=== PATIENT | female | born 1985 | race Hispanic/Latino ===

== ENCOUNTER 2019-05-31 15:09 | Inpatient (IN) | payer MEDICAID, SELFPAY ==
[~2019-05-31 15:09] MED LIST: Bupivacaine 0.25% HCL 30 ML VIAL ONE; Bupivacaine/Epinephrine 0.5% 10 ML VIAL ONE; Lidocaine 2% MPF 10 ML AMP (For Epidural Use) ONE
[2019-05-31] MEDS ORDERED: Ondansetron PF 4 MG/2 ML Vial IVP PRN (20:13)
[2019-05-31] MEDS ORDERED: Acetaminophen 500 MG TAB PO PRN (20:13)
[2019-05-31] MEDS ORDERED: Lidocaine 1% (PF) 30 ML VIAL SC PRN (20:13)
[2019-05-31] MEDS ORDERED: Promethazine HCl 25 MG/ML VIAL IM PRN (20:13)
[2019-05-31] MEDS ORDERED: Butorphanol Tartrate 1 MG/ML VIAL SLOW IVP PRN (20:13)
[2019-05-31] MEDS ORDERED: Ibuprofen 800 MG TAB PO PRN (20:13)
[2019-05-31] MEDS ORDERED: NS / Oxytocin 40 units/1000ml 1,000 ML IV PRN (20:13)
[2019-05-31] MEDS ORDERED: hydrALAZINE 20 MG/ML VIAL SLOW IVP PRN (20:13)
[2019-05-31] MEDS ORDERED: Penicillin G Potassium 5 MILL.UNITS in Sodium Chloride 0.9% 100 ML IVPB SCH (20:15)
[2019-05-31] MEDS: Lactated Ringer's 1,000 ML IV SCH (21:00)
[2019-05-31 21:07] LABS: Hemoglobin 13.3 g/dL (12.0-16.0); Mean Corpuscular HGB CONC 35.2 g/dL (32.0-36.0); Mean Corpuscular Hemoglobin 31.9 pg (27.0-31.0); Mean Corpuscular Volume 90.6 fL (78.0-98.0); Mean Platelet Volume 7.7 fL (7.4-10.4); Platelet Count 283 thou/uL (130-400); RBC Distribution Width 12.5 % (11.5-14.5); Red Blood Cell (RBC) Count 4.16 mill/uL (4.20-5.40)
[2019-05-31 21:15] VITALS: BMI 31.2
[2019-05-31] MEDS ORDERED: Misoprostol 100 MCG TAB ONE (21:30)
[2019-05-31] MEDS ORDERED: Misoprostol 100 MCG TAB VAG SCH (21:45)
--- NOTE | 2019-05-31 21:46 | PDOC.FPROB ---
FMR OB H&P: HPI - History of Present Illness Chief Complaint: Induction of Labor Indentification: 34 yo @41.3 by 37.3wk sono History of Present Illness: Pt presents as a post dates induction of labor. Pt was late to care. She moved from [facility] 2 months ago. She was dated at 37.3wks by sono at her initial visit. Pt was chlamydia positive and treated w/ PHONG pending. Pt is GBS positive. Denies any other gestational complications. No complaints at this time. No signs of SROM. No red flag sx. Primary Care Physician: Dr. Holt FMR OB H&P: Current - Care : 1 Para: 0 Gestational age: 41.3 Due date: 05/21/19 Dating Criteria: 37.3wk sono Course/Complications: Chlamydia treated w/ pending PHONG, GBS + - OB Labs Blood type: O RH: positive HIV: negative RPR: negative HepBsAg: negative Rubella: non-immune Gonorrhea: negative Chlamydia: positive (treated and pending PHONG) Pap Smear: Normal 1 hour gtt: 2hr - 97 GBS: positive H&H: 12.6/35.7 Platelets: 316 FMR OB H&P: History - Past Medical History PMH: None - OB History OB History: - [employer] History [employer] History: None - Surgical History Sx History: None - Social History Social History: Denies tobacco, alc, drugs - Family History Family History: Non contributory FMR OB H&P: Medications - Current Home Medications: Medication Instructions Recorded Confirmed Type Pnv No.95/Ferrous Fum/Folic AC 1 tab PO DAILY 05/31/19 05/31/19 History [ Vitamin Tablet] Allergies/Adverse Reactions: Allergies Allergy/AdvReac Type Severity Reaction Status Date / Time No Known Allergies Allergy Verified 05/31/19 21:17 FMR OB H&P: ROS - Review of Systems General: denies: fever/chills Eyes: denies: vision changes, double vision ENT: denies: nasal congestion, sinus pain/pressure Cardiovascular: denies: chest pain, edema Respiratory: denies: cough, shortness of breath Gastrointestinal: denies: abdominal pain, nausea, vomiting, diarrhea Genitourinary (Female): denies: dysuria, vaginal discharge, vaginal pain, vaginal bleeding, contractions Musculoskeletal: denies: pain, swelling Neurologic: denies: seizures, weakness, headache Integumentary: denies: rash, lesions FMR OB H&P: Vital Signs - Maternal Vital signs: BP: 121/73, HR: 93, Resp: 18, Temp: 97.8 - Heart Tones Baseline: 150 Variability: moderate Acceleration: present Deceleration: absent Category: category 1 [place] contractions every: 10 FMR OB H&P: Physical Exam - Physical Exam General: NAD HEENT: normocephalic and atraumatic, EOMI, MMM Neck: FROM, no JVD Heart: RRR, normal S1/S2, no murmurs/rubs/gallops, pulses present, no edema General: CTAB, no respiratory distress, good air movement, no rales/rhonchi Abdomen: soft, gravid, bowel sound present Musculoskeletal: pulses present, FROM in all four extremities Neurological: sensation to pain,touch and proprioception grossly normal Skin: no rash, capillary refill <2 seconds Lymphatic: no unusual bruising or bleeding, no purpura Psychiatric: intact recent and remote memory, good judgement and insight, normal mood and affect - Pelvic Exam Vulva: normal hair distribution, appropriate jose stage, no blood Deviation from normal: Thick clumping white discharge - likely yeast infection Cervix: no masses SVE: 1/50/-2 Mcmahon score: 7 Membranes: Intact Presentation: Vertex FMR OB H&P: Results - Labs Lab results: Laboratory Results - last 24 hr 05/31/19 05/31/19 20:53 20:53 WBC 12.0 H RBC 4.16 L Hgb 13.3 Hct 37.7 MCV 90.6 MCH 31.9 H MCHC 35.2 RDW 12.5 Plt Count 283 MPV 7.7 Blood Type O POSITIVE Antibody Screen NEGATIVE FMR OB H&P: A/P - Problem List (1) Post-dates Current Visit: Yes Status: Acute Code(s): O48.0 - POST-TERM (2) Late care Current Visit: Yes Status: Acute Code(s): O09.30 - SUPRVSN OF PREG W INSUFFICIENT ANTENAT CARE, UNSP TRIMESTER (3) Encounter for induction of labor Current Visit: Yes Status: Acute Code(s): Z34.90 - ENCNTR FOR SUPRVSN OF NORMAL , UNSP, UNSP TRIMESTER (4) Positive GBS test Current Visit: Yes Status: Acute Code(s): B95.1 - STREPTOCOCCUS, GROUP B, CAUSING DISEASES CLASSD ELSWHR (5) Chlamydia infection affecting in third trimester Current Visit: Yes Status: Acute Code(s): O98.813 - OTH MATERNAL INFEC/ PARASTC DISEASES COMP PREG, THIRD TRI; A74.9 - CHLAMYDIAL INFECTION, UNSPECIFIED Disposition: Induction of Labor for Post Dates - Late to Care @ 37wks - Current check 50/-2; Mcmahon 7 - Latest check this week: unable to locate cervix - Cytotec induction now, q4hr - Cat 1 strip w/ contractions on toco q10 min - Penicillin G started for GBS positive - Chlamydia PHONG pending, CPL contacted for results - Continuous EFM - cervical checks Dispo: Admit to L&D Discussion: Date/Time: 05/31/192141 This H&P was discussed with Dr. Zabala and Dr. Lima who agree with the above documentation and plan. Signature: Dutch Carvajal D.O. PGY1 Addendum - Attending - Attending Attestation Date/Time: 05/31/19 901 I personally evaluated the patient and discussed the management with Dr. Carvajal I agree with the History, Examination, Assessment and Plan documented above with any addition or exceptions noted below - 34 yo @41.3 weeks admitted for induction. Denies ctx, LOF, VB. (+) FM. Afebrile VSS. SVE 1/50%/-2/mid/med; Category 1 FHTs. A/P: 1) IUP@41.3 weeks for induction- cytotec placed; recheck in 4 hours. 2) GBS (+)- start PCN
[2019-05-31 21:52] LABS: Syphilis Antibody Nonreactive (Nonreactive); Syphilis Antibody Index 0.03 S/CO (<1.00 Non-Reactive)
[2019-05-31 23:26] LABS: HBSAg Index 0.14 S/CO (0-0.99); Hep B Surf Ag Non-Reactive S/CO (NonReactive)
[2019-06-01] MEDS: Misoprostol 100 MCG TAB VAG SCH ×3 (00:54→23:52)
[2019-06-01] MEDS: Penicillin G 2.5 MILL.units 2.5 MILL.UNITS in Premix Bag 1 BAG IVPB SCH ×5 (00:54→20:53)
--- NOTE | 2019-06-01 00:59 | PDOC.LDPN ---
Labor & Delivery Progress Note - Subjective Subjective: comfortable - Objective Vital signs reviewed and normal: yes General: NAD Uterine fundus: non tender SVE: /-1 @ [address] Carvajal and nurse Richa FHT: category 1 (Baseline 140, mod variability, +accels, no decels) [place] contractions every: q5-8 - Assessment (1) Post-dates Code(s): O48.0 - POST-TERM Current Visit: Yes Status: Acute Comment: Cervix slightly softer than last check. 2nd dose of cytotec placed. (2) Late care Code(s): O09.30 - SUPRVSN OF PREG W INSUFFICIENT ANTENAT CARE, UNSP TRIMESTER Current Visit: Yes Status: Acute (3) Encounter for induction of labor Code(s): Z34.90 - ENCNTR FOR SUPRVSN OF NORMAL , UNSP, UNSP TRIMESTER Current Visit: Yes Status: Acute (4) Positive GBS test Code(s): B95.1 - STREPTOCOCCUS, GROUP B, CAUSING DISEASES CLASSD ELSWHR Current Visit: Yes Status: Acute (5) Chlamydia infection affecting in third trimester Code(s): O98.813 - OTH MATERNAL INFEC/PARASTC DISEASES COMP PREG, THIRD TRI; A74.9 - CHLAMYDIAL INFECTION, UNSPECIFIED Current Visit: Yes Status: Acute Plan: continue plan of care
--- NOTE | 2019-06-01 05:04 | PDOC.LDPN ---
Labor & Delivery Progress Note - Subjective Subjective: comfortable, painful contractions (mildly) - Objective Vital signs reviewed and normal: yes General: NAD Uterine fundus: non tender SVE: /60/-2 FHT: category 1 [place] contractions every: 8 - Assessment (1) Post-dates Code(s): O48.0 - POST-TERM Current Visit: Yes Status: Acute Comment: Cervix slightly softer and thinner than last check. 3rd dose of cytotec placed. (2) Late care Code(s): O09.30 - SUPRVSN OF PREG W INSUFFICIENT ANTENAT CARE, UNSP TRIMESTER Current Visit: Yes Status: Acute (3) Encounter for induction of labor Code(s): Z34.90 - ENCNTR FOR SUPRVSN OF NORMAL , UNSP, UNSP TRIMESTER Current Visit: Yes Status: Acute (4) Positive GBS test Code(s): B95.1 - STREPTOCOCCUS, GROUP B, CAUSING DISEASES CLASSD ELSWHR Current Visit: Yes Status: Acute (5) Chlamydia infection affecting in third trimester Code(s): O98.813 - OTH MATERNAL INFEC/PARASTC DISEASES COMP PREG, THIRD TRI; A74.9 - CHLAMYDIAL INFECTION, UNSPECIFIED Current Visit: Yes Status: Acute Plan: continue plan of care
[2019-06-01] MEDS ORDERED: NS w/ Oxytocin 10 units 500 ML ONE (10:20)
[2019-06-01] MEDS: NS w/ Oxytocin 10 units 500 ML IV SCH (10:30)
[2019-06-01] MEDS: Lactated Ringer's 1,000 ML IV SCH ×3 (16:48→20:48)
--- NOTE | 2019-06-01 19:03 | PDOC.LDPN ---
Labor & Delivery Progress Note - Subjective Subjective: painful contractions - Objective Vital signs reviewed and normal: yes General: NAD, breathing through contractions Uterine fundus: non tender SVE: 18:30 Dilation: 1 Effacement: 90% Station: -3 FHT: category 1, variability present [place] contractions every: q1-2 min Other exam findings: SROM 17:10 - Assessment (1) Chlamydia infection affecting in third trimester Code(s): O98.813 - OTH MATERNAL INFEC/PARASTC DISEASES COMP PREG, THIRD TRI; A74.9 - CHLAMYDIAL INFECTION, UNSPECIFIED Current Visit: Yes Status: Acute (2) Encounter for induction of labor Code(s): Z34.90 - ENCNTR FOR SUPRVSN OF NORMAL , UNSP, UNSP TRIMESTER Current Visit: Yes Status: Acute (3) Late care Code(s): O09.30 - SUPRVSN OF PREG W INSUFFICIENT ANTENAT CARE, UNSP TRIMESTER Current Visit: Yes Status: Acute (4) Positive GBS test Code(s): B95.1 - STREPTOCOCCUS, GROUP B, CAUSING DISEASES CLASSD ELSWHR Current Visit: Yes Status: Acute (5) Post-dates Code(s): O48.0 - POST-TERM Current Visit: Yes Status: Acute Comment: Cervix slightly softer and thinner than last check. 3rd dose of cytotec placed. -: SROM 17:10. Balloon in place at that time. Balloon removed due to SROM at 18: 30. Recheck at that time /-3, midposition. Patient has been on 10 units of pitocin. Continue pitocin. Check again in 4 hours.
[2019-06-01] MEDS ORDERED: Fentanyl 4 mcg/Bup 0.1% Cadd 100 ML ONE (20:05)
[2019-06-01] MEDS ORDERED: Ondansetron PF 4 MG/2 ML Vial IVP PRN (21:15)
[2019-06-01] MEDS ORDERED: ePHEDrine/0.9% NaCl/PF SYRINGE 50 mg/10 ml SLOW IVP PRN (21:15)
[2019-06-01] MEDS ORDERED: Naloxone HCl 0.4 mg/ml Vial IVP PRN ×2 (21:15)
[2019-06-01] MEDS ORDERED: diphenhydrAMINE 50 MG/ML VIAL IVP PRN (21:15)
[2019-06-01] MEDS ORDERED: Promethazine HCl 25 MG/ML VIAL IM PRN (21:15)
[2019-06-01] MEDS ORDERED: Lactated Ringer's 500 ML IV PRN (21:15)
[2019-06-01] MEDS ORDERED: Acetaminophen 325 MG TAB PO PRN (21:15)
[2019-06-01] MEDS ORDERED: Communication Order-Pharmacy FS SCH (21:15)
--- NOTE | 2019-06-01 21:31 | PDOC.LDPN ---
Labor & Delivery Progress Note - Subjective Subjective: comfortable - Objective Vital signs reviewed and normal: yes General: NAD, resting Uterine fundus: non tender SVE: By Jonathon at 21:15 Dilation: 3 Effacement: 90% Station: -1 FHT: category 2, variable decelerations, late decelerations, variability present [place] contractions every: q2-3 min - Assessment (1) Chlamydia infection affecting in third trimester Code(s): O98.813 - OTH MATERNAL INFEC/PARASTC DISEASES COMP PREG, THIRD TRI; A74.9 - CHLAMYDIAL INFECTION, UNSPECIFIED Current Visit: Yes Status: Acute (2) Encounter for induction of labor Code(s): Z34.90 - ENCNTR FOR SUPRVSN OF NORMAL , UNSP, UNSP TRIMESTER Current Visit: Yes Status: Acute (3) Late care Code(s): O09.30 - SUPRVSN OF PREG W INSUFFICIENT ANTENAT CARE, UNSP TRIMESTER Current Visit: Yes Status: Acute (4) Positive GBS test Code(s): B95.1 - STREPTOCOCCUS, GROUP B, CAUSING DISEASES CLASSD ELSWHR Current Visit: Yes Status: Acute (5) Post-dates Code(s): O48.0 - POST-TERM Current Visit: Yes Status: Acute Comment: Cervix slightly softer and thinner than last check. 3rd dose of cytotec placed. Plan: continue plan of care -: Patient has made cervical change since last check. Continue current plan of care. Pitocin was temporarily d/c'd due to late decelerations.
--- NOTE | 2019-06-02 00:27 | PDOC.LDPN ---
Labor & Delivery Progress Note - Subjective Subjective: comfortable - Objective Vital signs reviewed and normal: yes General: resting SVE: 5/90/-1 per nurse FHT: category 1 [place] contractions every: q2-4 min - Assessment (1) Post-dates Code(s): O48.0 - POST-TERM Current Visit: Yes Status: Acute Comment: Cervix slightly softer and thinner than last check. 3rd dose of cytotec placed. (2) Late care Code(s): O09.30 - SUPRVSN OF PREG W INSUFFICIENT ANTENAT CARE, UNSP TRIMESTER Current Visit: Yes Status: Acute (3) Encounter for induction of labor Code(s): Z34.90 - ENCNTR FOR SUPRVSN OF NORMAL , UNSP, UNSP TRIMESTER Current Visit: Yes Status: Acute (4) Positive GBS test Code(s): B95.1 - STREPTOCOCCUS, GROUP B, CAUSING DISEASES CLASSD ELSWHR Current Visit: Yes Status: Acute (5) Chlamydia infection affecting in third trimester Code(s): O98.813 - OTH MATERNAL INFEC/PARASTC DISEASES COMP PREG, THIRD TRI; A74.9 - CHLAMYDIAL INFECTION, UNSPECIFIED Current Visit: Yes Status: Acute -: 1) IUP@41.4 weeks undergoing induction - Has made cervical change; continue pitocin - FHTs currently Category 1; occasional intermittent lates and variables- resolve with position change 2) GBS (+) - Continue PCN q4 hours
[2019-06-02] MEDS: Penicillin G 2.5 MILL.units 2.5 MILL.UNITS in Premix Bag 1 BAG IVPB SCH ×4 (00:41→15:07)
[2019-06-02] MEDS: Lactated Ringer's 1,000 ML IV SCH ×2 (02:37→09:02)
--- NOTE | 2019-06-02 02:55 | PDOC.LDPN ---
Labor & Delivery Progress Note - Subjective Subjective: comfortable - Objective Vital signs reviewed and normal: yes (T100.1) General: NAD, resting SVE: 5/90/-1 per nurse [place] contractions every: q2 min - Assessment (1) Post-dates Code(s): O48.0 - POST-TERM Current Visit: Yes Status: Acute Comment: Cervix slightly softer and thinner than last check. 3rd dose of cytotec placed. (2) Late care Code(s): O09.30 - SUPRVSN OF PREG W INSUFFICIENT ANTENAT CARE, UNSP TRIMESTER Current Visit: Yes Status: Acute (3) Encounter for induction of labor Code(s): Z34.90 - ENCNTR FOR SUPRVSN OF NORMAL , UNSP, UNSP TRIMESTER Current Visit: Yes Status: Acute (4) Positive GBS test Code(s): B95.1 - STREPTOCOCCUS, GROUP B, CAUSING DISEASES CLASSD ELSWHR Current Visit: Yes Status: Acute (5) Chlamydia infection affecting in third trimester Code(s): O98.813 - OTH MATERNAL INFEC/PARASTC DISEASES COMP PREG, THIRD TRI; A74.9 - CHLAMYDIAL INFECTION, UNSPECIFIED Current Visit: Yes Status: Acute -: A/P: 1) IUP @41.4 weeks undergoing induction for post-dates - No cervical change in last 3 hours; will place IUPC and monitor ctx - FHTs- episode of FHT in 170-180s now resolved with baseline 160; moderate variability; (+) accels; early decels after fluid bolus. Continue to monitor temp closely; plan to start abx if temp>100.4 2) GBS(+) - continue penicillin.
--- NOTE | 2019-06-02 04:38 | PDOC.LDPN ---
Labor & Delivery Progress Note - Subjective Subjective: comfortable - Objective Vital signs reviewed and normal: yes General: NAD, resting, breathing through contractions Uterine fundus: non tender SVE: 5.5/90/[address] Denise Dilation: 5.5 Effacement: 90% Station: 0 FHT: category 2 (baseline 155-160, accels present ), variability present AROM: clear fluid IUPC placed: yes - Assessment (1) Encounter for induction of labor Code(s): Z34.90 - ENCNTR FOR SUPRVSN OF NORMAL , UNSP, UNSP TRIMESTER Current Visit: Yes Status: Acute (2) Positive GBS test Code(s): B95.1 - STREPTOCOCCUS, GROUP B, CAUSING DISEASES CLASSD ELSWHR Current Visit: Yes Status: Acute (3) Post-dates Code(s): O48.0 - POST-TERM Current Visit: Yes Status: Acute Comment: Cervix slightly softer and thinner than last check. 3rd dose of cytotec placed. Plan: continue plan of care, pitocin for augmentation -: A/P: 1) IUP @41.4 weeks undergoing induction for post-dates - SVE 5.5/90/0 @0430, IUPC placed - FHTs- baseline 155-160; moderate variability; (+) accels 2) GBS(+) - continue penicillin. - Monitor closely for temperature
[2019-06-02] MEDS ORDERED: Fentanyl 4 mcg/Bup 0.1% Cadd 100 ML ONE ×2 (04:45→13:27)
[2019-06-02] MEDS: Fentanyl 4 mcg/Bupivacaine 0.1% Cassette 100 ML EPIDURAL SCH ×2 (04:49→13:30)
[2019-06-02] MEDS: NS w/ Oxytocin 10 units 500 ML IV SCH (05:57)
--- NOTE | 2019-06-02 06:33 | PDOC.LDPN ---
Labor & Delivery Progress Note - Subjective Subjective: comfortable, no concerns - Objective Vital signs reviewed and normal: yes General: NAD, resting, breathing through contractions Uterine fundus: non tender SVE: Dr. Denise Dilation: 6 Effacement: 90% Station: 0 FHT: category 1 (baseline 150. Late decelerations present. Mod variability ), late decelerations, variability present [place] contractions every: 3 min IUPC placed: yes - Assessment (1) Encounter for induction of labor Code(s): Z34.90 - ENCNTR FOR SUPRVSN OF NORMAL , UNSP, UNSP TRIMESTER Current Visit: Yes Status: Acute (2) Positive GBS test Code(s): B95.1 - STREPTOCOCCUS, GROUP B, CAUSING DISEASES CLASSD ELSWHR Current Visit: Yes Status: Acute (3) Post-dates Code(s): O48.0 - POST-TERM Current Visit: Yes Status: Acute Comment: Cervix slightly softer and thinner than last check. 3rd dose of cytotec placed. Plan: continue plan of care, pitocin for augmentation -: A/P: 1) IUP @41.4 weeks undergoing induction for post-dates - SVE /0 @0630, IUPC in place, reevlauate in X2 hours. - FHTs- baseline 150; moderate variability, late decels present when pt in the right lateral recumbent position. - Turned pt to left lateral recumbent 2) GBS(+) - continue penicillin. - Monitor closely for temperature
[2019-06-02] MEDS: Misoprostol 100 MCG TAB VAG SCH (06:53)
[2019-06-02] MEDS ORDERED: Dexamethasone 20 MG/5 ML VIAL ONE (16:18)
[2019-06-02] MEDS ORDERED: Ondansetron PF 4 MG/2 ML Vial ONE ×2 (16:18→17:09)
[2019-06-02] MEDS ORDERED: Sodium Chloride 0.9% 100 ML ONE (16:59)
[2019-06-02] MEDS ORDERED: Oxytocin 10 UNITS/ML VIAL ONE ×2 (17:08→18:07)
[2019-06-02] MEDS ORDERED: Fentanyl 100 MCG/2 ML VIAL ONE (17:09)
[2019-06-02] MEDS ORDERED: Dexamethasone 4 mg/ml Vial ONE (17:09)
[2019-06-02] MEDS ORDERED: Clindamycin/D5W 900 mg/50 ml Premix Bag ONE (17:11)
[2019-06-02] MEDS ORDERED: Methylergonovine 0.2 MG/ML VIAL ONE (17:18)
[2019-06-02 17:35] LABS: Analyzer IN Cardio OR; pH (Cord, venous) 7.35 (7.32-7.43)
[2019-06-02] MEDS ORDERED: MORPHINE 5 MG/10 ML PF VIAL ONE (18:11)
[2019-06-02] MEDS: Ampicillin 2 GM in Sodium Chloride 0.9% 100 ML IVPB SCH ×2 (18:38→23:53)
--- NOTE | 2019-06-02 19:01 | PDOC.EVN ---
Event Note - Event Note Event Note: C/S called at approximately 13:30 for failure to dilate. Patient stalled at 6 cm on pitocin for 24h with adequate MVU's for >4h. Category II strip at the time C/S was called with late and variable decelerations which responded to positional changes. Anesthesia not available at the time, and our C/S was second in line to a more urgent section. However, around 17:00, the previously mentioned section had not started, and upon checking on the patient, NRFHT's were noted, FHT's in 170's with minimal to no variability. Patient having lates and variable decelerations during course of labor. Concern for developing Category III strip. At this time, patient was also noted to have temperature to 100.2 F. Given increasing maternal temp, increasing maternal heart rate, and tachycardia, IAI suspected, so patient was switched from Pen G for which she was being treated for GBS, to Amp and Gentamicin to broaden coverage for IAI. Anesthesia was again notified and nurses indicated urgency of C/S given changes in status. At this point, patient had been ruptured for 24h. She was taken back within 15 minutes at that point in time, after reiterating urgency of section.
--- NOTE | 2019-06-02 19:11 | PDOC.OPDEL ---
OB Operative/Delivery Note Delivery Dr/Surgeon: Pope Holt Assist: Dara Pre-Delivery Diagnosis: arrest of dilation, medically indicated induction, non- reassuring tracing Procedure/Post Delivery Dx: primary low transverse CS Weeks gestation: 41 (41.5 wks) Anesthesia: epidural - Findings A Sex: male Weight: 3.297 kg - 1 min: 8 - 5 min: 9 - Additional Findings/Plan Placenta delivered: spontaneous findings: low transverse hysterotomy without extension, other (small pedunculated uterine fibroid on right posterior uterus, small ovarian cysts distributed throughout ovary bilaterally) Estimated blood loss: 750 mL Compilations/Other Findings: Date of Procedure: 06/02/2019 Resident Surgeon: Jonathon Enrollment Representative Surgeon: Dara Attending Surgeon: Procedure: pLTCS Preoperative Diagnosis: 1. Term intrauterine 2. Failed post-dates IOL; Failure to dilate 3. NRFHT's; tachycardia with minimal to no variability 4. Intra-amniotic infection Postoperative Diagnosis: 1. Term intrauterine , delivered via pLTCS 2. Failed post-dates IOL; Failure to dilate 3. NRFHT's; tachycardia with minimal to no variability 4. Intra-amniotic infection Anesthesia: spinal Indications: The patient is a year old female at 41.5 weeks gestation who initially presented at 41.3 wks for post-dates IOL. Patient had arrest of dilation at 6 cm. C/S called at appx 13:30, but anesthesia not available to proceed, so C/S delayed. At appx 16:40, tachycardia was noted with minimal variability. IAI suspected and antibiotics were broadened to to Amp and Gentamicin. C/S became more urgent given NRFHT's. Procedure in Detail: After risks, benefits, and alternatives were explained to the patient, she gave informed consent. Patient on Ampicillin and Gentamicin for IAI. The patient was taken to the operating room. She already had working epidural. She was placed in the supine position with a left tilt and prepped and draped in usual sterile fashion. A Pfannenstiel incision was made with a scalpel and carried down to the level of the fascia which was sharply nicked. The fascial cut was extended bilaterally with Nguyen sissors. The inferior and superior edges of the cut fascial edges were elevated with Nick clamps and the underlying rectus muscles were sharply and bluntly dissected free. The recti were divided digitally and retracted manually. The peritoneum was entered bluntly and retracted manually. Bladder blade was placed. A low transverse score was made with the scalpel and the uterus was entered in the midline with the scalpel. The hysterotomy was extended manually. The was noted to be vertex and was easily delivered by fundal pressure. Mouth and nares were bulb suctioned. Cord clamped and cut and grossly normal male infant was handed to waiting nurse. Cord blood was obtained. Placenta was manually extracted, found to be intact with 3 vessel cord and sent for pathology. The uterus was externalized and the endometrium was curetted with a dry lap. The bladder blade was replaced and the uterus was closed with a running locking #1 monocryl suture followed by a running non-locking #1 monocryl imbricating suture. Following this hemostasis was noted. The abdomen was irrigated with saline and suctioned free of clots. The uterus was internalized and the hysterotomy was again noted to be hemostatic. The peritoneum was closed using 3 -0 Vicryl in non-locking fashion. The fascia was closed with a running non- locking 0-PDS. The subcutaneous tissue was irrigated and there were no bleeders. The subcutaneous tissue was brought together using 2-0 plain gut. The skin was approximated with lauro and a pressure dressing was placed. All counts were correct. The patient tolerated the procedure well and was taken to the recovery room in stable condition. Estimated Blood Loss: 750 ml Complications: None Specimens: Cord blood sent to lab for blood type Findings: Grossly normal male infant with apgars of 8 and 9. Grossly normal placenta with 3 vessel cord and sent for pathology Drains: Contreras to gravity draining red tinged urine. Will drain contreras and continue to monitor. Post delivery plan: routine recovery Addendum - Attending - Attending Attestation Date/Time: 06/07/19 5072 I, Han Styles MD, personally evaluated the patient and discussed indications for the procedure described by Dr. Holt. I directly supervised and participated in the Section and I agree with the description of procedure as documented above without any addition or exceptions.
[2019-06-02] MEDS ORDERED: diphenhydrAMINE 25 MG CAP PO PRN (21:34)
[2019-06-02] MEDS ORDERED: Acetaminophen 325 MG TAB PO PRN (21:34)
[2019-06-02] MEDS ORDERED: Simethicone Chewable 80 MG TAB PO PRN (21:34)
[2019-06-02] MEDS ORDERED: HYDROcodone/Acetaminophen 5/325 mg Tablet PO PRN ×2 (21:34)
[2019-06-02] MEDS ORDERED: Lanolin Ointment 7 GM TUBE TOP PRN (21:34)
[2019-06-02] MEDS ORDERED: NS / Oxytocin 40 units/1000ml 1,000 ML IV SCH (21:34)
[2019-06-02] MEDS ORDERED: hydrALAZINE 20 MG/ML VIAL SLOW IVP PRN (21:34)
[2019-06-02] MEDS: Ibuprofen 800 MG TAB PO SCH (23:52)
[2019-06-03] MEDS: Ferrous Sulfate 325 MG TAB PO SCH ×3 (01:05→20:29)
[2019-06-03] MEDS: Docusate Calcium (SURFAK) 240 MG CAP PO SCH ×3 (01:05→20:29)
[2019-06-03] MEDS: Misoprostol 100 MCG TAB VAG SCH ×2 (01:06→01:07)
[2019-06-03] MEDS: Lactated Ringer's 1,000 ML IV SCH (01:07)
[2019-06-03] MEDS: Penicillin G 2.5 MILL.units 2.5 MILL.UNITS in Premix Bag 1 BAG IVPB SCH (01:07)
[2019-06-03 04:50] LABS: Hemoglobin 11.7 g/dL (12.0-16.0); Mean Corpuscular Hemoglobin 31.6 pg (27.0-31.0); Mean Corpuscular Volume 92.8 fL (78.0-98.0); Mean Platelet Volume 7.8 fL (7.4-10.4); Platelet Count 241 thou/uL (130-400); RBC Distribution Width 12.5 % (11.5-14.5); Red Blood Cell (RBC) Count 3.71 mill/uL (4.20-5.40)
[2019-06-03] MEDS: Ibuprofen 800 MG TAB PO SCH ×3 (05:52→20:29)
[2019-06-03] MEDS: Ampicillin 2 GM in Sodium Chloride 0.9% 100 ML IVPB SCH ×3 (05:52→17:34)
[2019-06-03] MEDS ORDERED: HYDROcodone/Acetaminophen 5/325 mg Tablet PO PRN (06:48)
--- NOTE | 2019-06-03 08:31 | PDOC.PP ---
Post Progress Note Post Day #: 1 Subjective: Patient doing well this AM. Pain well controlled with tylenol and [place]. Has yet to ambulate. Still with contreras in place. Patient reports minimal lochia. Patient desires to breast/bottle feed, but she has yet to put infant at breast. Advised that if she really wanted to breast feed, she needs to stimulate those hormones by offering breast frequently and/or be pumping q2-3 hours. legal consultant has been notified. PO intake tolerated: yes Flatus: yes Ambulation: yes Vital Signs (12 hours) Temp Pulse Resp BP Pulse Ox 06/03/19 04:00 97.7 F 72 16 80/51 L 96 06/03/19 00:30 98.9 F 76 18 102/59 L 95 Weight Weight 72.575 kg - Physical Examination General: NAD Cardiovascular: no m/r/g, RRR Respiratory: clear to auscultation bilaterally, non-labored breathing Abdominal: + bowel sounds, lochia (minimal), no distention, appropriately TTP Fundus firm & at: at umbilicus Extremities: negative homans (B) Skin: CS incision dry & intact, no rash Neurological: no gross focal deficits Psychiatric: A&Ox3, normal affect Result Diagrams: 06/03/19 04:00 Additional Labs: Post Labs Blood Type O POSITIVE 05/31/19 21:29 Hep Bs Antigen Non-Reactive S/CO (NonReactive) 05/31/19 20:53 (1) Chlamydia infection affecting in third trimester Code(s): O98.813 - OTH MATERNAL INFEC/PARASTC DISEASES COMP PREG, THIRD TRI; A74.9 - CHLAMYDIAL INFECTION, UNSPECIFIED Status: Acute (2) Encounter for induction of labor Code(s): Z34.90 - ENCNTR FOR SUPRVSN OF NORMAL , UNSP, UNSP TRIMESTER Status: Acute (3) Late care Code(s): O09.30 - SUPRVSN OF PREG W INSUFFICIENT ANTENAT CARE, UNSP TRIMESTER Status: Acute (4) Positive GBS test Code(s): B95.1 - STREPTOCOCCUS, GROUP B, CAUSING DISEASES CLASSD ELSWHR Status : Acute (5) Post-dates Code(s): O48.0 - POST-TERM Status: Acute Comment: Cervix slightly softer and thinner than last check. 3rd dose of cytotec placed. - Assessment/Plan 34 year old G1 --> P1 delivered TAGA M infant at 17:14 on 06/02 via pLTCS for arrest of dilation. Apgars 8/9. 1. Routine PP care - Post-op day #1 - Remove contreras - ADAT today - Ambulate frequently - legal consultant for needs; encouraged to put infant at breast to stimulate 2. IAI - Continue antibiotics 24 hours post-delivery - Afebrile overnight - No additional signs/symptoms of infection - WBC 20; continue to monitor, likely combination of IAI and leukamoid reaction from surgery 3. Late transfer of care 4. Chlamydia in s/p treatment - Negative PHONG pending Dispo: Anticipate LOS >48 hours.
[2019-06-03] MEDS ORDERED: Adacel (T-DAP) 0.5 ML SYRINGE IM ONE (09:00)
[2019-06-03] MEDS ORDERED: Measles/Mumps/Rubella 10 MCG/0.5 ML VIAL SC ONE (09:00)
[2019-06-03] MEDS: HYDROcodone/Acetaminophen 5/325 mg Tablet PO PRN ×2 (09:16→17:32)
[2019-06-03] MEDS: Prenatal Vitamin 1 TAB PO SCH (09:19)
[2019-06-04] MEDS: Ibuprofen 800 MG TAB PO SCH ×3 (05:38→22:21)
--- NOTE | 2019-06-04 08:31 | PDOC.PP ---
Post Progress Note Post Day #: 2 Subjective: Patient doing well. Tolerating PO. Ambulating. Minimal lochia. PO intake tolerated: yes Flatus: yes Ambulation: yes Vital Signs (12 hours) Temp Pulse Resp BP Pulse Ox 06/04/19 08:26 97.6 F 68 20 83/49 L 99 06/04/19 04:00 97.1 F L 70 14 91/44 L 98 06/04/19 01:03 97.6 F 82 22 H 82/48 L 97 06/03/19 21:34 97.8 F 85 20 96/50 L Weight Weight 72.575 kg - Physical Examination General: NAD Cardiovascular: RRR Respiratory: non-labored breathing Fundus firm & at: umbilicus Extremities: negative homans (B) Skin: CS incision dry & intact, no rash Deviation from normal: lauro in place Neurological: no gross focal deficits Psychiatric: A&Ox3, normal affect Result Diagrams: 06/03/19 04:00 Additional Labs: Post Labs Blood Type O POSITIVE 05/31/19 21:29 Hep Bs Antigen Non-Reactive S/CO (NonReactive) 05/31/19 20:53 (1) Chlamydia infection affecting in third trimester Code(s): O98.813 - OTH MATERNAL INFEC/PARASTC DISEASES COMP PREG, THIRD TRI; A74.9 - CHLAMYDIAL INFECTION, UNSPECIFIED Status: Acute (2) Encounter for induction of labor Code(s): Z34.90 - ENCNTR FOR SUPRVSN OF NORMAL , UNSP, UNSP TRIMESTER Status: Acute (3) Late care Code(s): O09.30 - SUPRVSN OF PREG W INSUFFICIENT ANTENAT CARE, UNSP TRIMESTER Status: Acute (4) Positive GBS test Code(s): B95.1 - STREPTOCOCCUS, GROUP B, CAUSING DISEASES CLASSD ELSWHR Status : Acute (5) Post-dates Code(s): O48.0 - POST-TERM Status: Acute Comment: Cervix slightly softer and thinner than last check. 3rd dose of cytotec placed. - Assessment/Plan 34 year old G1 --> P1 delivered TAGA M infant at 17:14 on 06/02 via pLTCS for arrest of dilation. Apgars 8/9. 1. Routine PP care - Post-op day #2 - Ambulate frequently - Opting to only bottle feed - Incision clean, dry, intact. Plan to remove lauro today and replace with steri-strips 2. IAI - Antibiotics d/c'd 24h post-delivery - Afebrile overnight - No additional signs/symptoms of infection - WBC 20; continue to monitor, likely combination of IAI and leukamoid reaction from surgery 3. Late transfer of care 4. Chlamydia in s/p treatment - Negative PHONG 05/25 5. Rubella non-immune - MMR vaccine given PP Dispo: Likely d/c home tomorrow morning.
[2019-06-04] MEDS: HYDROcodone/Acetaminophen 5/325 mg Tablet PO PRN ×3 (09:34→20:55)
[2019-06-04] MEDS: Ferrous Sulfate 325 MG TAB PO SCH ×2 (09:34→20:02)
[2019-06-04] MEDS: Prenatal Vitamin 1 TAB PO SCH (09:40)
[2019-06-04] MEDS: Docusate Calcium (SURFAK) 240 MG CAP PO SCH ×2 (10:05→20:55)
[2019-06-05] MEDS: Ibuprofen 800 MG TAB PO SCH (06:16)
[2019-06-05] MEDS: Docusate Calcium (SURFAK) 240 MG CAP PO SCH (09:13)
[2019-06-05] MEDS: Prenatal Vitamin 1 TAB PO SCH (09:13)
[2019-06-05] MEDS: Ferrous Sulfate 325 MG TAB PO SCH (09:13)
--- NOTE | 2019-06-05 10:21 | PDOC.PP ---
Post Progress Note Post Day #: 3 Subjective: Patient doing well. No significant overnight events. Patient tolerating PO and ambulating without difficulty. Pain well controlled with medications. PO intake tolerated: yes Flatus: yes Ambulation: yes Vital Signs (12 hours) Temp Pulse Resp BP Pulse Ox 06/05/19 07:50 98.0 F 93 16 106/59 L 100 06/05/19 00:15 98.4 F 80 16 100/58 L 96 Weight Weight 72.575 kg - Physical Examination General: NAD Cardiovascular: RRR Respiratory: clear to auscultation bilaterally, non-labored breathing Abdominal: + bowel sounds, lochia (minimal), no distention, appropriately TTP Fundus firm & at: below umbilicus Extremities: negative homans (B) Skin: CS incision dry & intact, no rash Deviation from normal: [place] in place, no drainage Neurological: no gross focal deficits Psychiatric: A&Ox3, normal affect Result Diagrams: 06/03/19 04:00 Additional Labs: Post Labs Blood Type O POSITIVE 05/31/19 21:29 Hep Bs Antigen Non-Reactive S/CO (NonReactive) 05/31/19 20:53 (1) Chlamydia infection affecting in third trimester Code(s): O98.813 - OTH MATERNAL INFEC/PARASTC DISEASES COMP PREG, THIRD TRI; A74.9 - CHLAMYDIAL INFECTION, UNSPECIFIED Status: Acute (2) Encounter for induction of labor Code(s): Z34.90 - ENCNTR FOR SUPRVSN OF NORMAL , UNSP, UNSP TRIMESTER Status: Acute (3) Late care Code(s): O09.30 - SUPRVSN OF PREG W INSUFFICIENT ANTENAT CARE, UNSP TRIMESTER Status: Acute (4) Positive GBS test Code(s): B95.1 - STREPTOCOCCUS, GROUP B, CAUSING DISEASES CLASSD ELSWHR Status : Acute (5) Post-dates Code(s): O48.0 - POST-TERM Status: Acute - Assessment/Plan 34 year old G1 --> P1 delivered TAGA M at 17:14 on 06/02 via pLTCS for arrest of dilation. Apgars 8/9. 1. Routine PP care - Post-op day #3 - Ambulate frequently - Opting to only bottle feed - Incision clean, dry, intact. Plan to remove lauro on Friday at [facility]. 2. IAI - Antibiotics d/c'd 24h post-delivery - Afebrile overnight - No additional signs/symptoms of infection - WBC 20; continue to monitor, likely combination of IAI and leukamoid reaction from surgery. Will evaluate clinically. 3. Late transfer of care 4. Chlamydia in s/p treatment - Negative PHONG 05/25 5. Rubella non-immune - MMR vaccine given PP Dispo: D/C home this AM. Addendum - Attending - Attending Attestation Date/Time: 06/06/19 0006 I personally evaluated the patient and discussed the management with Dr. Holt and team on 06/05. I agree with the History, Examination, Assessment and Plan documented above with any addition or exceptions noted below. Doing wonderfully, plan for d/c today.
[2019-06-05 11:48] VITALS: BP 100/53; TEMP 97.9
== END 2019-06-05 13:21 | disposition home or self-care (01) | DRG 786 ==
LOC: L&D 20:09 → 3SE 06-03 00:29
PROVIDERS: ADMIT Family Medicine; ATTEND Family Medicine
PROC: 0U7C7ZZ Dilation of Cervix, Via Natural or Artificial Opening (ICD-10-PCS; 2019-06-01)
PROC: 3E033VJ Introduction of Other Hormone into Peripheral Vein, Percutaneous Approach (ICD-10-PCS; 2019-06-01)
PROC: 3E0P7VZ Introduction of Hormone into Female Reproductive, Via Natural or Artificial Opening (ICD-10-PCS; 2019-06-01)
PROC: 10D00Z1 Extraction of Products of Conception, Low, Open Approach (ICD-10-PCS; principal; 2019-06-03)
DX: O48.0 Post-term pregnancy (principal); O41.1030 Infection of amniotic sac and membranes, unspecified, third trimester, not applicable or unspecified; O98.813 Other maternal infectious and parasitic diseases complicating pregnancy, third trimester; Z3A.41 41 weeks gestation of pregnancy; O99.824 Streptococcus B carrier state complicating childbirth; O76 Abnormality in fetal heart rate and rhythm complicating labor and delivery; O62.1 Secondary uterine inertia; O34.13 Maternal care for benign tumor of corpus uteri, third trimester; D25.9 Leiomyoma of uterus, unspecified; O34.83 Maternal care for other abnormalities of pelvic organs, third trimester; N83.202 Unspecified ovarian cyst, left side; N83.201 Unspecified ovarian cyst, right side; Z37.0 Single live birth; A74.9 Chlamydial infection, unspecified
CPT/HCPCS: 36415; 36416; 51702; 82805; 85027; 86780; 86850; 86900; 86901; 87340; 88307; 90707; C1726; J0290; J0595; J1100; J1580; J2001; J2210; J2274; J2405; J2540; J2590; J3010; J3490; S0020